=== PATIENT | male | born 1990 | race African-American/Black ===

== ENCOUNTER 2023-01-05 17:30 | Emergency (ER) | payer OTHER, SELFPAY ==
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
--- NOTE | ~2023-01-05 | XR_ITS ---
EXAMINATION: XR shoulder RT min 2V DATE: 01/05/2023 19:23 INDICATION: Right shoulder injury. TECHNIQUE: 4 views of right shoulder were obtained. COMPARISON: None. FINDINGS: Bone alignment is normal. No fracture. Joint spaces are well maintained. IMPRESSION: 1. Normal right shoulder. Reviewed, dictated and finalized at location E. IMPRESSION: 1. Normal right shoulder.
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
[2023-01-05 18:20] VITALS: BP 129/77; PULSE 75; RESP 16; TEMP 36.6; O2SAT 100
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
[2023-01-05 19:50] VITALS: RESP 18
[2023-01-05] MEDS: ACETAMINOPHEN 500 MG TABLET 1000 MG PO (20:34)
== END 2023-01-05 22:50 | disposition short-term general hospital (02) ==
PROVIDERS: Emergency Provider Nurse Practitioner Family
DX: S02.40EA Zygomatic fracture, right side, initial encounter for closed fracture (principal); H53.8 Other visual disturbances; Y04.0XXA Assault by unarmed brawl or fight, initial encounter; Y92.512 Supermarket, store or market as the place of occurrence of the external cause
CPT/HCPCS: 70450; 70486; 71046; 71110; 73030; 99285; A9270